=== PATIENT | male | born 1970 | race Caucasian/White ===

== ENCOUNTER → 2020-09-28 | Outpatient (CLI) | payer OTHER ==
--- NOTE | 2020-09-28 16:48 | CARDNUC ---
[place] [address] CARDIAC NUCLEAR IMAGING REPORT Name: NATANAEL LOONEY Room: [facility]#: [id number] Admission: 09/28/20 Attend Phys: Thomas Raymundo, Discharge: Date of : 70 Date of Service: 09/28/20 1648 Report #: [id number] THIS REPORT FOR: cc: Héctor Muniz MD, Kevin R. MD Liston, Michael J. MD [facility] ~ APPROVED REPORT Study performed: 09/28/2020 11:19:11 Exam: Nuclear Stress Test Indication: Abnormal EKG, Chest pain, Atrial Fibrillation, Dyspnea Patient Location: Out-Patient Stress Tech: Carmela Minor NM Tech:KATIE Cantu Ht: 6 ft 4 in Wt: 256 lbs BSA: 2.46 m2 BMI: 31.15 Medical History Medical History: Atrial Fibrillation Medications: xarelto Allergies: No known drug allergies Cardiac Risk Factors: Age Exercise History: Physically active Stress Test Details Stress Test: Pharmacologic stress testing performed using 0.4 mg of regadenoson per 5 mL given IV over 10 seconds. Reason for pharmacologic stress test: a fib. HR Resting HR: 65 bpm Max Heart Rate (APMHR): 170 bpm Max HR Achieved: 86 bpm Target HR (85% APMHR): 144 bpm % of APMHR: 50 Recovery HR: 64 bpm BP Resting BP: 122/83 mmHg Max BP: 136/76 mmHg ECG Resting ECG: [place] [address] CARDIAC NUCLEAR IMAGING REPORT Name: NATANAEL LOONEY Room: [facility]#: [id number] Admission: 09/28/20 Attend Phys: Thomas Raymundo, Discharge: Date of : 70 Date of Service: 09/28/20 1648 Report #: [id number] Stress ECG: Atrial Fibrillation ST Change: None Recovery ECG: Atrial Fibrillation Recovery ST Change: None Clinical Reason for Termination: Completed protocol The patient tolerated Lexiscan infusion without significant cardiac symptoms. Stress ECG Conclusion The baseline twelve-lead EKG shows atrial fibrillation without significant ST segment or T wave abnormality. EKGs obtained during and post Lexiscan infusion show atrial fibrillation with no significant ST segment changes when compared to baseline. NM EXAM: Myocardial Perfusion REST/STRESS Imaging Protocol: Rest Tc-99m/Stress Tc-99m 1 day Resting Data Rest SPECT myocardial perfusion imaging was performed in supine position 30 minutes following the intravenous injection of 9.8 mCi of Tc-99m Sestamibi. Time of rest injection: 1000 Date: 09/28/2020 The images were gated to evaluate regional wall motion and calculate left ventricular ejection fraction. Administration Route: IV Administration Site: Right AC Pharmacologic Stress Pharmacologic stress test was performed by injecting Regadenoson 0.4 mg IV push followed by the intravenous injection of 33.2 mCi of Tc-99m Sestamibi. Time of stress injection: 1140 Date: 09/28/2020 Administration Route: IV Administration Site: Right AC Gated Stress SPECT was performed 40 minutes after stress injection. The images were gated to evaluate regional wall motion and calculate left ventricular ejection fraction. Prone imaging was performed. Study Quality Study: Good Artifact: [place] [address] CARDIAC NUCLEAR IMAGING REPORT Name: NATANAEL LOONEY Room: [facility]#: [id number] Admission: 09/28/20 Attend Phys: Thomas Raymundo, Discharge: Date of : 70 Date of Service: 09/28/20 1648 Report #: [id number] Study Data At rest, the left ventricular ejection fraction was 58%.. Post stress, the left ventricular ejection was 54%.. TID = 1.02. Perfusion Perfusion images obtained at rest and post Lexiscan stress show relatively uniform uptake of the radioisotope throughout the myocardium. There were no significant defects to suggest infarct or ischemia. Wall Motion Normal left ventricular wall motion. Nuclear Conclusion ECG Findings: negative for ischemia Clinical Findings: negative for ischemia Nuclear Findings: negative for ischemia Exercise Capacity: not assessed Left Ventricular Function: normal Risk Study: low Perfusion study show no defect to suggest infarct or ischemia. Left ventricular systolic function appears normal on gated studies. This is a low risk study. <Conclusion> The baseline twelve-lead EKG shows atrial fibrillation without significant ST segment or T wave abnormality. EKGs obtained during and post Lexiscan infusion show atrial fibrillation with no significant ST segment changes when compared to baseline. <ELECTRONICALLY SIGNED> By: Marino Sharma MD, FACC 09/28/20 1648 47 [id number] Marino Sharma MD, FACC /INF
== END ==
LOC: M.NUC 09-20 15:42 → M.CRD 09:00 → M.NUC 09:27
PROVIDERS: ATTEND Internal Medicine
DX: I48.91 Unspecified atrial fibrillation (principal)